=== PATIENT | male | born 1965 | race American Indian/Alaskan Native ===

== ENCOUNTER 2017-12-15 00:25 | Inpatient (IN) | payer OTHER ==
[2017-12-15 01:27] LABS: Hematocrit 38.8 % (35.5-45.6); Hemoglobin 13.5 gm/dl (11.8-15.2); Mean Corpuscular HGB Conc 35 % (32-34); Mean Corpuscular Hemoglobin 31 pg (28-32); Mean Corpuscular Volume 88 fl (84-94); Platelet Count 262 K/mm3 (140-440); Red Blood Count 4.39 M/mm3 (3.65-5.03); Red Cell Distribution Width 13.3 % (13.2-15.2)
[2017-12-15 01:44] LABS: Alanine Aminotransferase 22 units/L (7-56); Albumin 4.5 g/dL (3.9-5); BUN/Creatinine Ratio 17; Blood Urea Nitrogen 15 mg/dL (9-20); Calcium 9.1 mg/dL (8.4-10.2); Hemolysis Index 14
--- NOTE | 2017-12-15 02:22 | Cat Scan Report ---
FINAL REPORT EXAM: CT HEAD/BRAIN WO CON HISTORY: fall hit head with LOC TECHNIQUE: Routine imaging was obtained of the brain without IV contrast. FINDINGS: Those left frontal temporal scalp hematoma. There is no skull fracture. Intracranially there is no evidence of hemorrhage or infarct. The ventricular system is appropriate in size and is symmetric. The basal cisterns appear normal. The visualized sinuses are clear. The mastoid air cells are well pneumatized. IMPRESSION: Left frontal temporal scalp hematoma without skull fracture. No evidence of intracranial injury or stroke.
[2017-12-15 02:42] LABS: Total Cells Counted 100
[2017-12-15 02:43] LABS: Basophils % (Manual) 0 % (0.0-1.8); Platelet Estimate Consistent w Auto; RBC Morphology Normal
[2017-12-15 02:46] LABS: Bilirubin,Urine NEG (Negative); Blood,Urine NEG (Negative); Color,Urine Yellow (Yellow); Mucus,Urine FEW /HPF; Protein,Urine <15 mg/dL mg/dL (Negative); Urobilinogen,Urine < 2.0 mg/dL (<2.0); WBC,Urine < 1.0 /HPF (0.0-6.0)
[2017-12-15 02:50] LABS: Amphetamine Screen,Urine PRESUMPTIVE NEGATIVE; Benzodiazepines Screen,Urine PRESUMPTIVE NEGATIVE; Cocaine Screen,Urine PRESUMPTIVE NEGATIVE; Methadone Screen,Urine PRESUMPTIVE NEGATIVE; Opiate Screen,Urine PRESUMPTIVE NEGATIVE
[2017-12-15 03:05] LABS: Cannabinoid Screen,Urine PRESUMPTIVE POSITIVE
--- NOTE | 2017-12-15 04:13 | Emergency Department Report ---
ED Syncope HPI - General Chief Complaint: Fall Stated Complaint: SYNCOPE Time Seen by Provider: 12/15/17 01:56 Source: patient Exam Limitations: no limitations - History of Present Illness Initial Comments: 52-year-old male with a past medical history hypertension presents to the hospital complaining of syncopal episode. Patient was at an advanced, felt hot , went outside to get some air, then passed out. He woke up with a left scalp hematoma and moderate headache which persists now. He denies any preceding symptoms other than feeling hot and lightheaded. He denied preceding headache, chest pain, shortness of breath, palpitations, or abdominal pain. There were no reports of seizure activity or urinary incontinence. Patient states he has been drinking less fluids but has had good by mouth intake. He denies melena, hematochezia, or hematemesis. Early in the week patient had intermittent palpitations and fluttering of his heart. - Related Data Allergies/Adverse Reactions: Allergies No Known Allergies Allergy (Unverified 12/15/17 00:55) ED Review of Systems ROS: Stated complaint: SYNCOPE Other details as noted in HPI Comment: All other systems reviewed and negative ED Past Medical Hx - Past Medical History Previous Medical History?: Yes Hx Hypertension: Yes - Surgical History Past Surgical History?: No - Social History Smoking Status: Current Every Day Smoker Substance Use Type: Alcohol, Marijuana ED Physical Exam - General Limitations: Other - Other Other exam information: General: No limitations, patient is alert in no acute distress Head exam: Left frontal hematoma Eyes exam: Normal appearance, pupils equal reactive to light, extraocular movements intact ENT: Moist mucous membrane, normal oropharynx Neck exam: Normal inspection, full range of motion, no meningismus nontender Respiratory exam: Clear to auscultation bilateral, no wheezes, rales, crackles Cardiovascular: Normal rate and rhythm, normal heart sounds Abdomen: Soft, nondistended, and nontender, with normal bowel sounds, no rebound, or guarding Extremity: Full range of motion normal inspection no deformity Back: Normal Inspection, full range of motion, no tenderness Neurologic: Alert, oriented x3, cranial nerves intact, no motor or sensory deficit Psychiatric: normal affect, normal mood Skin: Warm, dry, intact ED Course Vital Signs 12/15/17 12/15/17 12/15/17 00:51 01:00 02:00 Pulse Rate 59 L 60 70 Respiratory 11 L 18 23 Rate Blood Pressure 125/76 126/81 O2 Sat by Pulse 99 Oximetry 12/15/17 12/15/17 03:00 03:04 Pulse Rate 63 Respiratory 18 18 Rate Blood Pressure 126/74 O2 Sat by Pulse 100 Oximetry ED Medical Decision Making - Lab Data Result diagrams: 12/15/17 01:14 12/15/17 01:14 Lab Results 12/15/17 12/15/17 12/15/17 Range/Units 01:14 01:14 01:14 WBC 10.1 (4.5-11.0) K/mm3 RBC 4.39 (3.65-5.03) M/mm3 Hgb 13.5 (11.8-15.2) gm/dl Hct 38.8 (35.5-45.6) % MCV 88 (84-94) fl MCH 31 (28-32) pg MCHC 35 H (32-34) % RDW 13.3 (13.2-15.2) % Plt Count 262 (140-440) K/mm3 Add Manual Diff Complete Total Counted 100 Seg Neuts % (Manual) 67.0 (40.0-70.0) % Band Neutrophils % 0 % Lymphocytes % (Manual) 30.0 (13.4-35.0) % Reactive Lymphs % (Man) 0 % Monocytes % (Manual) 2.0 (0.0-7.3) % Eosinophils % (Manual) 1.0 (0.0-4.3) % Basophils % (Manual) 0 (0.0-1.8) % Metamyelocytes % 0 % Myelocytes % 0 % Promyelocytes % 0 % Blast Cells % 0 % Nucleated RBC % Not Reportable Seg Neutrophils # Man 6.8 (1.8-7.7) K/mm3 Band Neutrophils # 0.0 K/mm3 Lymphocytes # (Manual) 3.0 (1.2-5.4) K/mm3 Abs React Lymphs (Man) 0.0 K/mm3 Monocytes # (Manual) 0.2 (0.0-0.8) K/mm3 Eosinophils # (Manual) 0.1 (0.0-0.4) K/mm3 Basophils # (Manual) 0.0 (0.0-0.1) K/mm3 Metamyelocytes # 0.0 K/mm3 Myelocytes # 0.0 K/mm3 Promyelocytes # 0.0 K/mm3 Blast Cells # 0.0 K/mm3 WBC Morphology Not Reportable Hypersegmented Neuts Not Reportable Hyposegmented Neuts Not Reportable Hypogranular Neuts Not Reportable Smudge Cells Not Reportable Toxic Granulation Not Reportable Toxic Vacuolation Not Reportable Dohle Bodies Not Reportable Pelger-Huet Anomaly Not Reportable Polina Rods Not Reportable Platelet Estimate Consistent w auto Clumped Platelets Not Reportable Plt Clumps, EDTA Not Reportable Large Platelets Not Reportable Giant Platelets Not Reportable Platelet Satelliting Not Reportable Plt Morphology Comment Not Reportable RBC Morphology Normal Dimorphic RBCs Not Reportable Polychromasia Not Reportable Hypochromasia Not Reportable Poikilocytosis Not Reportable Anisocytosis Not Reportable Microcytosis Not Reportable Macrocytosis Not Reportable Spherocytes Not Reportable Pappenheimer Bodies Not Reportable Sickle Cells Not Reportable Target Cells Not Reportable Tear Drop Cells Not Reportable Ovalocytes Not Reportable Helmet Cells Not Reportable [place] Bodies Not Reportable [place] Rings Not Reportable [place] Cells Not Reportable Bite Cells Not Reportable Crenated Cell Not Reportable Elliptocytes Not Reportable Acanthocytes (Spur) Not Reportable Rouleaux Not Reportable Hemoglobin C Crystals Not Reportable Schistocytes Not Reportable Malaria parasites Not Reportable Jamir Bodies Not Reportable Hem Pathologist Commnt No Sodium 142 (137-145) mmol/L Potassium 3.7 (3.6-5.0) mmol/L Chloride 99.5 (98-107) mmol/L Carbon Dioxide 29 (22-30) mmol/L Anion Gap 17 mmol/L BUN 15 (9-20) mg/dL Creatinine 0.9 (0.8-1.5) mg/dL Estimated GFR > 60 ml/min BUN/Creatinine Ratio 17 % Glucose 126 H (75-100) mg/dL Calcium 9.1 (8.4-10.2) mg/dL Total Bilirubin 0.60 (0.1-1.2) mg/dL AST 20 (5-40) units/L ALT 22 (7-56) units/L Alkaline Phosphatase 38 (35-129) units/L Troponin T (0.00-0.029) ng/mL Total Protein 7.3 (6.3-8.2) g/dL Albumin 4.5 (3.9-5) g/dL Albumin/Globulin Ratio 1.6 % TSH 3.070 (0.270-4.200) mlU/mL Urine Color (Yellow) Urine Turbidity (Clear) Urine pH (5.0-7.0) Ur Specific [place] (1.003-1.030) Urine Protein (Negative) mg/dL Urine Glucose (UA) (Negative) mg/dL Urine Ketones (Negative) mg/dL Urine Blood (Negative) Urine Nitrite (Negative) Urine Bilirubin (Negative) Urine Urobilinogen (<2.0) mg/dL Ur Leukocyte Esterase (Negative) Urine WBC (Auto) (0.0-6.0) /HPF Urine RBC (Auto) (0.0-6.0) /HPF U Epithel Cells (Auto) (0-13.0) /HPF Urine Mucus /HPF Urine Opiates Screen Urine Methadone Screen Ur Barbiturates Screen Ur Phencyclidine Scrn Ur Amphetamines Screen U Benzodiazepines Scrn Urine Cocaine Screen U Marijuana (THC) Screen Drugs of Abuse Note Plasma/Serum Alcohol (0-0.07) % 12/15/17 12/15/17 12/15/17 Range/Units 01:14 01:14 Unknown WBC (4.5-11.0) K/mm3 RBC (3.65-5.03) M/mm3 Hgb (11.8-15.2) gm/dl Hct (35.5-45.6) % MCV (84-94) fl MCH (28-32) pg MCHC (32-34) % RDW (13.2-15.2) % Plt Count (140-440) K/mm3 Add Manual Diff Total Counted Seg Neuts % (Manual) (40.0-70.0) % Band Neutrophils % % Lymphocytes % (Manual) (13.4-35.0) % Reactive Lymphs % (Man) % Monocytes % (Manual) (0.0-7.3) % Eosinophils % (Manual) (0.0-4.3) % Basophils % (Manual) (0.0-1.8) % Metamyelocytes % % Myelocytes % % Promyelocytes % % Blast Cells % % Nucleated RBC % Seg Neutrophils # Man (1.8-7.7) K/mm3 Band Neutrophils # K/mm3 Lymphocytes # (Manual) (1.2-5.4) K/mm3 Abs React Lymphs (Man) K/mm3 Monocytes # (Manual) (0.0-0.8) K/mm3 Eosinophils # (Manual) (0.0-0.4) K/mm3 Basophils # (Manual) (0.0-0.1) K/mm3 Metamyelocytes # K/mm3 Myelocytes # K/mm3 Promyelocytes # K/mm3 Blast Cells # K/mm3 WBC Morphology Hypersegmented Neuts Hyposegmented Neuts Hypogranular Neuts Smudge Cells Toxic Granulation Toxic Vacuolation Dohle Bodies Pelger-Huet Anomaly Polina Rods Platelet Estimate Clumped Platelets Plt Clumps, EDTA Large Platelets Giant Platelets Platelet Satelliting Plt Morphology Comment RBC Morphology Dimorphic RBCs Polychromasia Hypochromasia Poikilocytosis Anisocytosis Microcytosis Macrocytosis Spherocytes Pappenheimer Bodies Sickle Cells Target Cells Tear Drop Cells Ovalocytes Helmet Cells [place] Bodies [place] Rings [place] Cells Bite Cells Crenated Cell Elliptocytes Acanthocytes (Spur) Rouleaux Hemoglobin C Crystals Schistocytes Malaria parasites Jamir Bodies Hem Pathologist Commnt Sodium (137-145) mmol/L Potassium (3.6-5.0) mmol/L Chloride (98-107) mmol/L Carbon Dioxide (22-30) mmol/L Anion Gap mmol/L BUN (9-20) mg/dL Creatinine (0.8-1.5) mg/dL Estimated GFR ml/min BUN/Creatinine Ratio % Glucose (75-100) mg/dL Calcium (8.4-10.2) mg/dL Total Bilirubin (0.1-1.2) mg/dL AST (5-40) units/L ALT (7-56) units/L Alkaline Phosphatase (35-129) units/L Troponin T < 0.010 (0.00-0.029) ng/mL Total Protein (6.3-8.2) g/dL Albumin (3.9-5) g/dL Albumin/Globulin Ratio % TSH (0.270-4.200) mlU/mL Urine Color Yellow (Yellow) Urine Turbidity Clear (Clear) Urine pH 6.0 (5.0-7.0) Ur Specific [place] 1.012 (1.003-1.030) Urine Protein <15 mg/dl (Negative) mg/dL Urine Glucose (UA) Neg (Negative) mg/dL Urine Ketones Neg (Negative) mg/dL Urine Blood Neg (Negative) Urine Nitrite Neg (Negative) Urine Bilirubin Neg (Negative) Urine Urobilinogen < 2.0 (<2.0) mg/dL Ur Leukocyte Esterase Neg (Negative) Urine WBC (Auto) < 1.0 (0.0-6.0) /HPF Urine RBC (Auto) 1.0 (0.0-6.0) /HPF U Epithel Cells (Auto) < 1.0 (0-13.0) /HPF Urine Mucus Few /HPF Urine Opiates Screen Urine Methadone Screen Ur Barbiturates Screen Ur Phencyclidine Scrn Ur Amphetamines Screen U Benzodiazepines Scrn Urine Cocaine Screen U Marijuana (THC) Screen Drugs of Abuse Note Plasma/Serum Alcohol 0.01 (0-0.07) % 12/15/17 Range/Units Unknown WBC (4.5-11.0) K/mm3 RBC (3.65-5.03) M/mm3 Hgb (11.8-15.2) gm/dl Hct (35.5-45.6) % MCV (84-94) fl MCH (28-32) pg MCHC (32-34) % RDW (13.2-15.2) % Plt Count (140-440) K/mm3 Add Manual Diff Total Counted Seg Neuts % (Manual) (40.0-70.0) % Band Neutrophils % % Lymphocytes % (Manual) (13.4-35.0) % Reactive Lymphs % (Man) % Monocytes % (Manual) (0.0-7.3) % Eosinophils % (Manual) (0.0-4.3) % Basophils % (Manual) (0.0-1.8) % Metamyelocytes % % Myelocytes % % Promyelocytes % % Blast Cells % % Nucleated RBC % Seg Neutrophils # Man (1.8-7.7) K/mm3 Band Neutrophils # K/mm3 Lymphocytes # (Manual) (1.2-5.4) K/mm3 Abs React Lymphs (Man) K/mm3 Monocytes # (Manual) (0.0-0.8) K/mm3 Eosinophils # (Manual) (0.0-0.4) K/mm3 Basophils # (Manual) (0.0-0.1) K/mm3 Metamyelocytes # K/mm3 Myelocytes # K/mm3 Promyelocytes # K/mm3 Blast Cells # K/mm3 WBC Morphology Hypersegmented Neuts Hyposegmented Neuts Hypogranular Neuts Smudge Cells Toxic Granulation Toxic Vacuolation Dohle Bodies Pelger-Huet Anomaly Polina Rods Platelet Estimate Clumped Platelets Plt Clumps, EDTA Large Platelets Giant Platelets Platelet Satelliting Plt Morphology Comment RBC Morphology Dimorphic RBCs Polychromasia Hypochromasia Poikilocytosis Anisocytosis Microcytosis Macrocytosis Spherocytes Pappenheimer Bodies Sickle Cells Target Cells Tear Drop Cells Ovalocytes Helmet Cells [place] Bodies [place] Rings [place] Cells Bite Cells Crenated Cell Elliptocytes Acanthocytes (Spur) Rouleaux Hemoglobin C Crystals Schistocytes Malaria parasites Jamir Bodies Hem Pathologist Commnt Sodium (137-145) mmol/L Potassium (3.6-5.0) mmol/L Chloride (98-107) mmol/L Carbon Dioxide (22-30) mmol/L Anion Gap mmol/L BUN (9-20) mg/dL Creatinine (0.8-1.5) mg/dL Estimated GFR ml/min BUN/Creatinine Ratio % Glucose (75-100) mg/dL Calcium (8.4-10.2) mg/dL Total Bilirubin (0.1-1.2) mg/dL AST (5-40) units/L ALT (7-56) units/L Alkaline Phosphatase (35-129) units/L Troponin T (0.00-0.029) ng/mL Total Protein (6.3-8.2) g/dL Albumin (3.9-5) g/dL Albumin/Globulin Ratio % TSH (0.270-4.200) mlU/mL Urine Color (Yellow) Urine Turbidity (Clear) Urine pH (5.0-7.0) Ur Specific [place] (1.003-1.030) Urine Protein (Negative) mg/dL Urine Glucose (UA) (Negative) mg/dL Urine Ketones (Negative) mg/dL Urine Blood (Negative) Urine Nitrite (Negative) Urine Bilirubin (Negative) Urine Urobilinogen (<2.0) mg/dL Ur Leukocyte Esterase (Negative) Urine WBC (Auto) (0.0-6.0) /HPF Urine RBC (Auto) (0.0-6.0) /HPF U Epithel Cells (Auto) (0-13.0) /HPF Urine Mucus /HPF Urine Opiates Screen Presumptive negative Urine Methadone Screen Presumptive negative Ur Barbiturates Screen Presumptive negative Ur Phencyclidine Scrn Presumptive negative Ur Amphetamines Screen Presumptive negative U Benzodiazepines Scrn Presumptive negative Urine Cocaine Screen Presumptive negative U Marijuana (THC) Screen Presumptive positive Drugs of Abuse Note Disclamer Plasma/Serum Alcohol (0-0.07) % - EKG Data -: EKG Interpreted by Me EKG shows normal: sinus rhythm, axis (qrs 23), QRS complexes (qrsd 78), ST-T waves (lat and inf t inv) Rate: normal - EKG Data When compared to previous EKG there are: previous EKG unavailable - Radiology Data Radiology results: report reviewed FINAL REPORT EXAM: CT HEAD/BRAIN WO CON HISTORY: fall hit head with LOC TECHNIQUE: Routine imaging was obtained of the brain without IV contrast. FINDINGS: Those left frontal temporal scalp hematoma. There is no skull fracture. Intracranially there is no evidence of hemorrhage or infarct. The ventricular system is appropriate in size and is symmetric. The basal cisterns appear normal. The visualized sinuses are clear. The mastoid air cells are well pneumatized. IMPRESSION: Left frontal temporal scalp hematoma without skull fracture. No evidence of intracranial injury or stroke. - Medical Decision Making Patient had a syncopal episode reports intermittent palpitations. Will be admitted for further monitoring and workup. Hospitalist informed for permission. - Differential Diagnosis vasovagal, arrhythmia, dehydration, anemia Critical Care Time: No Critical care attestation.: If time is entered above; I have spent that time in minutes in the direct care of this critically ill patient, excluding procedure time. ED Disposition Clinical Impression: Syncope, Intermittent palpitations, HTN (hypertension) Disposition: OP ADMIT IP TO THIS HOSP Is pt being admited?: Yes Condition: Stable Instructions: Hypertension (ED) Time of Disposition: 04:13 (Dr Field/hosp)
[2017-12-15] MEDS ORDERED: TORADOL IV ONE (04:59)
[2017-12-15] MEDS ORDERED: NACL 0.9% 1000 ML 1,000 ML IV ONE (04:59)
[2017-12-15] MEDS ORDERED: ZOFRAN IV PRN (06:44)
[2017-12-15] MEDS ORDERED: TYLENOL PO PRN (06:44)
[2017-12-15] MEDS ORDERED: NACL 0.9% 1000 ML 1,000 ML IV SCH (07:00)
--- NOTE | 2017-12-15 12:25 | History and Physical Report ---
CHIEF COMPLAINT: Syncopal attack. HISTORY OF PRESENT ILLNESS: The patient is a 52-year-old who said he had some palpitations some days prior to passing out today. The patient and spouse said they went for a alliance party and in the alliance party, the patient started feeling hot and then fell face down and had some swelling in the forehead area. He denied any history of dizziness prior to fainting and denied any history of chest pain, shortness of breath, nausea or vomiting. The patient presented for evaluation. PAST MEDICAL HISTORY: Pertinent for hypertension. PAST SURGICAL HISTORY: Unremarkable. FAMILY HISTORY: Noncontributory. SOCIAL HISTORY: The patient drinks alcohol and admitted to having some alcohol prior to syncopal episode. The patient smokes cigarettes and uses marijuana in the past. MEDICATIONS: The patient's home medications are not known. ALLERGIES: There are no known drug allergies. REVIEW OF SYSTEMS: CONSTITUTIONAL: No fever, no chills, no diaphoresis. HEENT: There is no headache or sore throat. CARDIOVASCULAR: There is no chest pain, no orthopnea. RESPIRATORY: There is no shortness of breath or cough. GASTROINTESTINAL: There is no nausea, no vomiting, no abdominal pain, diarrhea or constipation. NEUROLOGICAL: Syncopal episodes noted, feeling of hot sensation noted. MUSCULOSKELETAL SYSTEM: There is no joint pain or swelling. DERMATOLOGICAL: There is no skin rash or itching. GENITOURINARY: There is no dysuria, hematuria, or flank pain. Rest of system review is normal. PHYSICAL EXAMINATION: GENERAL: At the time of exam, the patient was found to be alert, oriented x 3, not in the acute distress. VITAL SIGNS: Initially at the time presentation shows normal temperature with pulse of 69, respirations 11, blood pressure 125/76, O2 sat of 99% on room air. HEENT: Shows swelling in the forehead from where the patient fell to the floor. Pupils are equal, round, reactive to light and accommodation. Extraocular muscles are intact. NECK: Supple with no JVD or carotid bruit. CARDIOVASCULAR: Showed normal first and second heart sounds with no gallops, rubs or murmurs. RESPIRATORY SYSTEM: Show good air entry on both sides of the lung with no abnormal breath sounds. GASTROINTESTINAL SYSTEM: Show abdomen to be full, soft, nontender with no organomegaly or rigidity. NEUROLOGIC: Shows no focal deficit. MUSCULOSKELETAL: Show no joint swelling or tenderness. DERMATOLOGICAL SYSTEM: Show no skin rash. GENITOURINARY: Showing no costovertebral angle tenderness. PERTINENT LABORATORY AND IMAGING STUDIES: The patient had a CT of the head without contrast done that shows left frontotemporal scalp hematoma without skull fracture. There is no evidence of intracranial injury or stroke, according to radiologist. The patient's lab results shows normal CBC and unremarkable chemistry and unremarkable urinalysis . Toxicology screen is positive for marijuana. DIAGNOSES: 1. Syncope. 2. Palpitation. 3. Hypertension. 4. Marijuana use. PLAN: 1. The patient will be admitted to medical floor on telemetry. 2. The patient will have complete echocardiogram done this morning and will also have bilateral carotids Dopplers done. 3. The patient will have cardiac enzymes involving troponin, total CK and CK-MB checked q. 6 hours x 2 more levels. 4. The patient will be on IV normal saline at 125 mL an hour and will also be on p.r.n. medications, like Tylenol 650 mg by mouth every 4 hours for fever and headache and Zofran 4 mg IV every 8 hours for nausea and vomiting. 5. The patient's home medications will be started when they are known. JOB# [id number] [facility]/NTS LAWSOND
[2017-12-15 12:26] LABS: Creatine Kinase MB 2.7 ng/mL (0.0-4.0)
--- NOTE | 2017-12-15 13:26 | Event Note ---
Date: 12/15/17 Patient seen and examined medical records reviewed Vital signs stable Admitted with history of syncope Workup so far negative CT head without contrast; left frontotemporal scalp hematoma without skull fracture No evidence of intracranial injury or stroke Carotid Doppler; less than 50% stenosis Echocardiogram; 55% ejection fraction, no shunt noted Ambulate as tolerated, fall precautions Physical therapy Smoking cessation counseling Counseling and advised repeat fixation drug use Closely monitor, DC home tomorrow if stable
[2017-12-15 18:26] LABS: Creatine Kinase MB 2.5 ng/mL (0.0-4.0)
--- NOTE | 2017-12-16 10:22 | Discharge Summary ---
Providers - Providers Date of Admission: 12/15/17 09:12 Date of discharge: 12/16/17 Attending physician: HOME AKERS Primary care physician: UNDERWRITING CONSULTANT Hospitalization Condition: Stable Core Measure Documentation - Palliative Care Palliative Care/ Comfort Measures: Not Applicable Exam - Constitutional Vitals: Temp Pulse Resp BP Pulse Ox 98.1 F 52 L 18 137/89 100 12/16/17 07:49 12/16/17 07:49 12/16/17 07:49 12/16/17 07:49 12/16/17 07:49 Plan Activity: advance as tolerated, fall precautions Additional Instructions: Fall precautions. See private neurologist for further evaluation as needed Follow up with: MARY MONCADA MD [Primary Care Provider] - 7 Days MICAH SAENZ MD [Staff Physician] - 7 Days
--- NOTE | 2017-12-16 11:29 | Progress Note ---
Assessment and Plan Assessment and plan: --Syncope; no new episodes of syncope since admission Fall precautions Workup so far negative CT head without contrast; left frontotemporal scalp hematoma without skull fracture No evidence of intracranial injury or stroke Carotid Doppler; less than 50% stenosis Echocardiogram; 55% ejection fraction, no shunt noted However patient's telemetry strips show PVCs and possible AV block Consult cardiology for further evaluation --s/p Fall/supraorbital hematoma/contusion Supportive care --DVT prophylaxis; Lovenox Closely monitor patient and adjust the management as needed Follow cardiology evaluation and recommendations Possible Discharge in 1-2 days if stable History Interval history: Patient seen and examined medical records reviewed, Admitted with syncope, and supraorbital scalp abrasion Syncope workup so far is negative , however Telemetry report second-degree AV block patient feels better no new episodes of syncope or dizziness Vital signs reviewed Hospitalist Physical - Constitutional Vitals: Temp Pulse Resp BP Pulse Ox 98.1 F 79 18 137/89 100 12/16/17 07:49 12/16/17 07:50 12/16/17 07:49 12/16/17 07:49 12/16/17 07:49 General appearance: Present: no acute distress, well-nourished - EENT Eyes: Present: PERRL, EOM intact - Neck Neck: Present: supple, normal ROM - Respiratory Respiratory effort: normal Respiratory: bilateral: diminished, negative: rales, rhonchi, wheezing - Cardiovascular Rhythm: regular Heart Sounds: Present: S1 & S2 - Extremities Extremities: no ischemia, No edema - Abdominal General gastrointestinal: soft, non-tender, non-distended, normal bowel sounds - Integumentary Integumentary: Present: clear, warm - Psychiatric Psychiatric: appropriate mood/affect, cooperative - Neurologic Neurologic: CNII-XII intact, moves all extremities Results - Labs CBC & Chem 7: 12/15/17 01:14 12/15/17 01:14 Labs: Laboratory Last Values WBC 10.1 K/mm3 (4.5-11.0) 12/15/17 01:14 RBC 4.39 M/mm3 (3.65-5.03) 12/15/17 01:14 Hgb 13.5 gm/dl (11.8-15.2) 12/15/17 01:14 Hct 38.8 % (35.5-45.6) 12/15/17 01:14 MCV 88 fl (84-94) 12/15/17 01:14 MCH 31 pg (28-32) 12/15/17 01:14 MCHC 35 % (32-34) H 12/15/17 01:14 RDW 13.3 % (13.2-15.2) 12/15/17 01:14 Plt Count 262 K/mm3 (140-440) 12/15/17 01:14 Add Manual Diff Complete 12/15/17 01:14 Total Counted 100 12/15/17 01:14 Seg Neuts % (Manual) 67.0 % (40.0-70.0) 12/15/17 01:14 Band Neutrophils % 0 % 12/15/17 01:14 Lymphocytes % (Manual) 30.0 % (13.4-35.0) 12/15/17 01:14 Reactive Lymphs % (Man) 0 % 12/15/17 01:14 Monocytes % (Manual) 2.0 % (0.0-7.3) 12/15/17 01:14 Eosinophils % (Manual) 1.0 % (0.0-4.3) 12/15/17 01:14 Basophils % (Manual) 0 % (0.0-1.8) 12/15/17 01:14 Metamyelocytes % 0 % 12/15/17 01:14 Myelocytes % 0 % 12/15/17 01:14 Promyelocytes % 0 % 12/15/17 01:14 Blast Cells % 0 % 12/15/17 01:14 Nucleated RBC % Not Reportable 12/15/17 01:14 Seg Neutrophils # Man 6.8 K/mm3 (1.8-7.7) 12/15/17 01:14 Band Neutrophils # 0.0 K/mm3 12/15/17 01:14 Lymphocytes # (Manual) 3.0 K/mm3 (1.2-5.4) 12/15/17 01:14 Abs React Lymphs (Man) 0.0 K/mm3 12/15/17 01:14 Monocytes # (Manual) 0.2 K/mm3 (0.0-0.8) 12/15/17 01:14 Eosinophils # (Manual) 0.1 K/mm3 (0.0-0.4) 12/15/17 01:14 Basophils # (Manual) 0.0 K/mm3 (0.0-0.1) 12/15/17 01:14 Metamyelocytes # 0.0 K/mm3 12/15/17 01:14 Myelocytes # 0.0 K/mm3 12/15/17 01:14 Promyelocytes # 0.0 K/mm3 12/15/17 01:14 Blast Cells # 0.0 K/mm3 12/15/17 01:14 WBC Morphology Not Reportable 12/15/17 01:14 Hypersegmented Neuts Not Reportable 12/15/17 01:14 Hyposegmented Neuts Not Reportable 12/15/17 01:14 Hypogranular Neuts Not Reportable 12/15/17 01:14 Smudge Cells Not Reportable 12/15/17 01:14 Toxic Granulation Not Reportable 12/15/17 01:14 Toxic Vacuolation Not Reportable 12/15/17 01:14 Dohle Bodies Not Reportable 12/15/17 01:14 Pelger-Huet Anomaly Not Reportable 12/15/17 01:14 Polina Rods Not Reportable 12/15/17 01:14 Platelet Estimate Consistent w auto 12/15/17 01:14 Clumped Platelets Not Reportable 12/15/17 01:14 Plt Clumps, EDTA Not Reportable 12/15/17 01:14 Large Platelets Not Reportable 12/15/17 01:14 Giant Platelets Not Reportable 12/15/17 01:14 Platelet Satelliting Not Reportable 12/15/17 01:14 Plt Morphology Comment Not Reportable 12/15/17 01:14 RBC Morphology Normal 12/15/17 01:14 Dimorphic RBCs Not Reportable 12/15/17 01:14 Polychromasia Not Reportable 12/15/17 01:14 Hypochromasia Not Reportable 12/15/17 01:14 Poikilocytosis Not Reportable 12/15/17 01:14 Anisocytosis Not Reportable 12/15/17 01:14 Microcytosis Not Reportable 12/15/17 01:14 Macrocytosis Not Reportable 12/15/17 01:14 Spherocytes Not Reportable 12/15/17 01:14 Pappenheimer Bodies Not Reportable 12/15/17 01:14 Sickle Cells Not Reportable 12/15/17 01:14 Target Cells Not Reportable 12/15/17 01:14 Tear Drop Cells Not Reportable 12/15/17 01:14 Ovalocytes Not Reportable 12/15/17 01:14 Helmet Cells Not Reportable 12/15/17 01:14 [place] Bodies Not Reportable 12/15/17 01:14 Olden Rings Not Reportable 12/15/17 01:14 [place] Cells Not Reportable 12/15/17 01:14 Bite Cells Not Reportable 12/15/17 01:14 Crenated Cell Not Reportable 12/15/17 01:14 Elliptocytes Not Reportable 12/15/17 01:14 Acanthocytes (Spur) Not Reportable 12/15/17 01:14 Rouleaux Not Reportable 12/15/17 01:14 Hemoglobin C Crystals Not Reportable 12/15/17 01:14 Schistocytes Not Reportable 12/15/17 01:14 Malaria parasites Not Reportable 12/15/17 01:14 Jamir Bodies Not Reportable 12/15/17 01:14 Hem Pathologist Commnt No 12/15/17 01:14 Sodium 142 mmol/L (137-145) 12/15/17 01:14 Potassium 3.7 mmol/L (3.6-5.0) 12/15/17 01:14 Chloride 99.5 mmol/L (98-107) 12/15/17 01:14 Carbon Dioxide 29 mmol/L (22-30) 12/15/17 01:14 Anion Gap 17 mmol/L 12/15/17 01:14 BUN 15 mg/dL (9-20) 12/15/17 01:14 Creatinine 0.9 mg/dL (0.8-1.5) 12/15/17 01:14 Estimated GFR > 60 ml/min 12/15/17 01:14 BUN/Creatinine Ratio 17 % 12/15/17 01:14 Glucose 126 mg/dL (75-100) H 12/15/17 01:14 POC Glucose 105 (70-105) 12/15/17 13:32 Calcium 9.1 mg/dL (8.4-10.2) 12/15/17 01:14 Total Bilirubin 0.60 mg/dL (0.1-1.2) 12/15/17 01:14 AST 20 units/L (5-40) 12/15/17 01:14 ALT 22 units/L (7-56) 12/15/17 01:14 Alkaline Phosphatase 38 units/L (35-129) 12/15/17 01:14 Total Creatine Kinase 227 units/L (55-170) H 12/15/17 17:44 CK-MB (CK-2) 2.5 ng/mL (0.0-4.0) 12/15/17 17:44 CK-MB (CK-2) Rel Index 1.1 (0-4) 12/15/17 17:44 Troponin T < 0.010 ng/mL (0.00-0.029) 12/15/17 17:44 Total Protein 7.3 g/dL (6.3-8.2) 12/15/17 01:14 Albumin 4.5 g/dL (3.9-5) 12/15/17 01:14 Albumin/Globulin Ratio 1.6 % 12/15/17 01:14 TSH 3.070 mlU/mL (0.270-4.200) 12/15/17 01:14 Urine Color Yellow (Yellow) 12/15/17 Unknown Urine Turbidity Clear (Clear) 12/15/17 Unknown Urine pH 6.0 (5.0-7.0) 12/15/17 Unknown Ur Specific [place] 1.012 (1.003-1.030) 12/15/17 Unknown Urine Protein <15 mg/dl mg/dL (Negative) 12/15/17 Unknown Urine Glucose (UA) Neg mg/dL (Negative) 12/15/17 Unknown Urine Ketones Neg mg/dL (Negative) 12/15/17 Unknown Urine Blood Neg (Negative) 12/15/17 Unknown Urine Nitrite Neg (Negative) 12/15/17 Unknown Urine Bilirubin Neg (Negative) 12/15/17 Unknown Urine Urobilinogen < 2.0 mg/dL (<2.0) 12/15/17 Unknown Ur Leukocyte Esterase Neg (Negative) 12/15/17 Unknown Urine WBC (Auto) < 1.0 /HPF (0.0-6.0) 12/15/17 Unknown Urine RBC (Auto) 1.0 /HPF (0.0-6.0) 12/15/17 Unknown U Epithel Cells (Auto) < 1.0 /HPF (0-13.0) 12/15/17 Unknown Urine Mucus Few /HPF 12/15/17 Unknown Urine Opiates Screen Presumptive negative 12/15/17 Unknown Urine Methadone Screen Presumptive negative 12/15/17 Unknown Ur Barbiturates Screen Presumptive negative 12/15/17 Unknown Ur Phencyclidine Scrn Presumptive negative 12/15/17 Unknown Ur Amphetamines Screen Presumptive negative 12/15/17 Unknown U Benzodiazepines Scrn Presumptive negative 12/15/17 Unknown Urine Cocaine Screen Presumptive negative 12/15/17 Unknown U Marijuana (THC) Screen Presumptive positive 12/15/17 Unknown Drugs of Abuse Note Disclamer 12/15/17 Unknown Plasma/Serum Alcohol 0.01 % (0-0.07) 12/15/17 01:14
[2017-12-16 12:52] VITALS: BP 155/102
--- NOTE | 2017-12-16 15:01 | Event Note ---
Date: 12/16/17 Detailed cardiology consultation dictated. A: #1: Syncope - suspect vasovagal #2: Blocked PACs #2: HTN #3: ETOH use / marijuana use P: Telemetry reviewed - pt appears to have infrequent blocked PACs, no AV block noted. Echo reviewed - no significant abnormalities noted. ECG with NAF, Juan negative for AMI. Pt denies any chest pain, SOB or palpitations. Suspect syncopal episode was vasovagal in etiology. Can consider OP stress test and/or holter study if symptoms reoccur. Pt may discharge home from cardiology standpoint. Recommend follow up in our office with Dr. Kaye within 2 weeks of hospital discharge ([phone]). Annetta WAGNER NP / DR. KAYE
--- NOTE | 2017-12-16 15:12 | Discharge Summary ---
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 She was admitted observed fall precautions, had extensive syncope workup CT head without contrast, echocardiogram, carotid Doppler which were negative. However patient had intermittent cardiac ischemia possible PVCs versus AV block. Patient gives history of irregular heart rate for many years. Cardiology has evaluated in consultation, no intervention or special management this time, advised to follow with them in the office for further evaluation as needed Today patient is comfortable in no new complaints Vital signs reviewed, clinical examination is unremarkable Patient is hemodynamically and clinically stable at discharge Advised to quit marijuana use Discharge diagnosis: --Syncope; no new episodes of syncope , workup negative --Possible AV block/PVCs, in the setting of syncope Cardiology evaluated, advised to follow for further evaluation as outpatient --s/p Fall/scalp hematoma, Supportive care --History of marijuana use; strongly advised to quit Disposition: DC-01 TO HOME OR SELFCARE Time spent for discharge: 31 min Core Measure Documentation - Palliative Care Palliative Care/ Comfort Measures: Not Applicable - Core Measures Any of the following diagnoses?: none Exam - Constitutional Vitals: Temp Pulse Resp BP Pulse Ox 98.1 F 63 20 155/102 97 12/16/17 11:19 12/16/17 11:19 12/16/17 11:19 12/16/17 11:19 12/16/17 11:19 General appearance: Present: no acute distress, well-nourished - EENT Eyes: Present: PERRL, EOM intact - Neck Neck: Present: supple, normal ROM - Respiratory Respiratory effort: normal Respiratory: bilateral: diminished, negative: rales, rhonchi, wheezing - Cardiovascular Rhythm: regular Heart Sounds: Present: S1 & S2 - Extremities Extremities: no ischemia, No edema Peripheral Pulses: within normal limits - Abdominal General gastrointestinal: Present: soft, non-tender, non-distended, normal bowel sounds - Integumentary Integumentary: Present: clear, warm - Musculoskeletal Musculoskeletal: strength equal bilaterally - Psychiatric Psychiatric: appropriate mood/affect, cooperative - Neurologic Neurologic: CNII-XII intact, moves all extremities Plan Activity: no restrictions, fall precautions Diet: regular Additional Instructions: Fall precautions. Continue your home medications as before. If you have recurrent syncope, you may need neurology evaluation Follow up with: MICAH SAENZ MD [Staff Physician] - 7 Days PRIMARY MD CORAL [Primary Care Provider] - 7 Days YVAN KAYE MD [Staff Physician] - 7 Days
--- NOTE | 2017-12-17 03:25 | Consultation ---
LOCATION: The patient is in room #479J. REQUESTING PHYSICIAN: Dr. Nugent, hospitalist. REASON FOR CONSULTATION: Syncope. HISTORY OF PRESENT ILLNESS: This is a 52-year-old patient with a history of hypertension for a few years and has been on treatment for last 3 weeks with amlodipine 10 mg and hydrochlorothiazide 25 mg, was in a [employer] Saturday night. He had 3 alcoholic beverages, two glasses of wine and another drink in the span of 4 hours. While he was at the [employer] he felt hot and sweating and he wanted to get some fresh air. Therefore, he walked out and passed out and hit his left side of the head to the floor. He was brought to [facility]. He had a CT of the head done, which revealed extracranial hematoma without any intracranial problems. He has had a carotid ultrasound and echocardiogram to complete her workup. The patient uses occasional marijuana. No history of chest pain, palpitations, diabetes mellitus or known hyperlipidemia. No history of TIA or stroke. He had appendectomy last year on emergency basis. He does work out 4-5 days a week, running and lifting weights without any problems. FAMILY HISTORY: Negative for stroke or coronary artery disease. SOCIAL HISTORY: The patient is . His is at bedside. He has 3 children in good health. ALLERGIES: None known. PHYSICAL EXAMINATION: GENERAL: The patient is alert, oriented to time, place, and person. VITAL SIGNS: His BMI is 26.6 kg per meter squared. NECK: No JVP elevation, no bruits noted in the neck. Thyroid is normal. HEART: PMI at fifth intercostal space within midclavicular line. S4 is noted. No murmurs audible. No rubs. LUNGS: Clear. ABDOMEN: Soft and nontender. Liver and spleen are not palpable. Bowel sounds are active. EXTREMITIES: No edema. Good pulses. DIAGNOSTIC DATA: EKG is sinus rhythm, within normal limits. Vital signs are noted in the chart are normal with a blood pressure of 126/74, pulse of 64, and respirations 10 per minute. LABORATORY DATA: Hemoglobin 13.5 grams percent, hematocrit 38.8. His potassium 3.7, BUN is 15, and creatinine 0.9. EKG is sinus rhythm, within normal limits. Echocardiogram is normal except for mild concentric left ventricle hypertrophy and mild dilatation of the right atrium and right ventricle. IMPRESSION: 1. Syncope, etiology unknown. Most likely vasovagal syncope because of low blood pressure and low pulse rate. 2. Intermittent palpitations, which he has been having for many years. He had workup done while going to the [employer] and he always has slow heart rate. He does not take any medication for this. 3. Hypertension, on Norvasc and hydrochlorothiazide. RECOMMENDATIONS: The patient can be discharged. I do not think he needs stress test at this time because he does exercise regularly without any problems. If he continues to have dizziness or syncopal episodes, we will do further Holter monitoring or stress testing as an outpatient. JOB# [id number] KRISTI/LINA TORRES
== END 2017-12-16 20:00 | disposition home or self-care (01) | DRG 312 ==
LOC: ED 00:25 → SUATTDRO 00:25 → 4A 09:12
PROVIDERS: ADMIT Internal Medicine; ATTEND Internal Medicine
DX: R55 Syncope and collapse (principal); I49.3 Ventricular premature depolarization; R00.2 Palpitations; I10 Essential (primary) hypertension; F12.90 Cannabis use, unspecified, uncomplicated; I44.30 Unspecified atrioventricular block; F10.10 Alcohol abuse, uncomplicated; S00.03XA Contusion of scalp, initial encounter; F17.200 Nicotine dependence, unspecified, uncomplicated; W18.39XA Other fall on same level, initial encounter; Z71.51 Drug abuse counseling and surveillance of drug abuser; Z71.6 Tobacco abuse counseling; Y93.89 Activity, other specified; Y92.89 Other specified places as the place of occurrence of the external cause; Y99.8 Other external cause status
CPT/HCPCS: 36415; 70450; 80053; 80307; 80320; 81001; 82550; 82553; 82962; 84443; 84484; 85007; 85025; 93005; 93010; 93306; 93880; 96361; 96374; G0480; J1885; J7030